=== PATIENT | male | born 1985 | race Caucasian/White ===

== ENCOUNTER 2024-01-21 23:56 | Emergency (ER) | payer OTHER, SELFPAY ==
[2024-01-22] VITALS: BP 154/110
[2024-01-22 00:18] VITALS: BMI 36.6
--- NOTE | 2024-01-22 00:18 | EDRN ---
Pt says he felt his heart fluttering when he was trying to sleep so he took his bp and it was 150/100. Pt says it did not go down so he decided to come in 'to make sure nothing crazy is going on.' Pt says his bp has been going up all week and
thought it might be because of Halloween candy. Pt took melatonin to go to sleep and says it did not help. Every time he starts to fall asleep pt feels fluttering in his chest. Pt has had this sensation in his chest intermittently over the past
10 days. Sensation more frequent today. Pt has not been evaluated for this previously. Pt describes chest tightness rated 2-3/10. Pt has had 'a little' chills and 'a little' cough due to fluttering. No sob, abd pain, n/v, fever, weakness,
dizziness.
[2024-01-22 00:24] VITALS: BP 153/95
[2024-01-22 00:30] VITALS: BP 145/91
--- NOTE | 2024-01-22 00:34 | ED.GENMED ---
History of Present Illness
<Heaven Marie MD, Resident - Last Filed: 01/22/24 03:02>
General
Chief Complaint: Blood Pressure Problem
Source: patient
Exam Limitations: none
Time Seen by Provider: 01/22/24 00:34
Nursing documentation reviewed up to this point in time: agreed with
History of Present Illness
History of Present Illness:
28-year-old male with past medical history significant for ITP, Gilbert's syndrome, hypertension presents to the hospital for evaluation of elevated blood pressure and heart fluttering. About 10 days ago he started having frontal headaches,
throbbing, 7/10 in intensity with no subjective fevers or chills and patient took [id number] ibuprofen with some relief. Over the last 3 to 4 days patient started noticing that his blood pressure is elevated despite taking olmesartan as
prescribed, he started to have some heart fluttering, and some associated chest tightness to it. His chest tightness is about 2/10 in intensity, not radiating to his jaw but radiating into his left arm, his left arm pain could also be from raking
his yard. His symptoms were much worse in the night, he has been using more pillows in the night over the last 2 to 3 days to help his sleep with heart racing. He also states that he has a sensation of taking in deep breath to feel comfortable
every once in a while. Initially his symptoms were intermittent and episodic, however over the last 2 to 3 days his symptoms were becoming gradually worse and his symptoms were continuous today. He denies having shortness of breath, PND,
orthopnea, dizziness, lightheadedness, syncope or near syncopal episodes, swelling of the feet, change in bowel or bladder habits, nausea, emesis, recent illness. He works as a kindergarten schoolteacher, states that kids around him were sick with
viral illnesses but unsure of COVID and flu.
Patient did not receive COVID booster or flu shot.
If applicable-neuro sx onset
Onset of symptoms known: No
Time pt last seen normal is known: No
Past History
<Heaven Marie MD, Resident - Last Filed: 01/22/24 03:02>
Past History
ED Past Medical History: Other (Hypertension, IBS, ITP)
ED Past Surgical History: None
Social History
Tobacco: Non-smoker
Alcohol: Occasional
Personal:
Living: with family
Employment: Employed
Family History
Family History: Other
Review of Systems
<Heaven Marie MD, Resident - Last Filed: 01/22/24 03:02>
Review of Systems
Constitutional: Reports no symptoms
EENT: Reports no symptoms
Respiratory: Reports trouble breathing
Cardiac: Reports palpitations and other (Chest pressure.)
ABD/GI: Reports no symptoms
: Reports no symptoms
Musculoskeletal: Reports no symptoms
Skin: Reports no symptoms
Neurological: Reports no symptoms
Endocrine: Reports no symptoms
Hematologic/Lymphatic: Reports no symptoms
Psychiatric: Reports no symptoms
Phy Exam
<Heaven Marie MD, Resident - Last Filed: 01/22/24 03:02>
General Physical Exam
General Presentation: well appearing and no apparent distress
General Skin: warm
General Habitus: obese
General Mental: alert
General Hydration: appears well hydrated
Eye Exam
Eye Exam: PERRL and EOMI
Cardiovascular Exam
Cardiovascular Exam: regular rate/rhythm, no edema, no gallop, no murmur and normal peripheral pulses
Heart Sounds: normal
Pulmonary Exam
Pulmonary Exam: lungs clear, no respiratory distress, no rales, no crackles and no rhonchi
Gastrointestinal Exam
Gastrointestinal Exam: normal bowel sounds, non tender, soft, no pulsatile mass, non distended and no cva tenderness
Neurological Exam
Neurological Exam: alert, no motor deficits and normal reflexs
Musculoskeletal Exam
Musculoskeletal Exam: no edema
Skin Exam
Skin Exam: normal color
Course
<Hevaen Marie MD, Resident - Last Filed: 01/22/24 03:02>
Orders/Labs/Results
Orders:
Orders
01/22/24 00:07
Electrocardiogram (*1) Urgent
Reason for Study: Other
Other Reason for Exam: Respiratory Distress
Cardiac Monitoring- Treatment ONCE
EKG- Treatment ONCE
CR Chest - 2 Views Urgent
Comment:
Reason For Exam: respiratory distress
O2 Therapy [RESP] Urgent
Titrate/Wean O2 to maintain O2 sat greater than (%): 93
Special Instructions: TO MAINTAIN CONTINUOUS O2 SATS >/= 93%
Pulse Ox/cont/shift [RESP] Urgent
Quantity: 1
Special Instructions: continuous pulse ox
01/22/24 01:26
Complete Blood Count/With Diff Urgent
Comprehensive Metabolic Panel Urgent
Troponin I Urgent
Abnormal Lab Results
01/22/24
01:26
RBC 4.69 L 10^6/uL
(4.70-6.10)
MCH 31.8 H pg
(27.0-31.0)
MCHC 37.4 H g/dL
(33.0-37.0)
Glucose 120 H mg/dl
(70-99)
01/22/24 01:26
01/22/24 01:26
Vital Signs
Initial and Last Documented VS:
Initial Vital Signs
Temp Pulse Resp BP Pulse Ox
98.3 F 54 20 154/110 100
01/22/24 00:00 01/22/24 00:00 01/22/24 00:00 01/22/24 00:00 01/22/24 00:00
Last Documented Vital Signs
Temp Pulse Resp BP Pulse Ox
98.3 F 52 16 130/82 99
01/22/24 00:00 01/22/24 02:29 01/22/24 02:29 01/22/24 02:29 01/22/24 02:29
<Geovany Holly, DO - Last Filed: 01/22/24 02:01>
Orders/Labs/Results
Orders:
Orders
01/22/24 00:07
Electrocardiogram (*1) Urgent
Reason for Study: Other
Other Reason for Exam: Respiratory Distress
Cardiac Monitoring- Treatment ONCE
EKG- Treatment ONCE
CR Chest - 2 Views Urgent
Comment:
Reason For Exam: respiratory distress
O2 Therapy [RESP] Urgent
Titrate/Wean O2 to maintain O2 sat greater than (%): 93
Special Instructions: TO MAINTAIN CONTINUOUS O2 SATS >/= 93%
Pulse Ox/cont/shift [RESP] Urgent
Quantity: 1
Special Instructions: continuous pulse ox
01/22/24 01:26
Complete Blood Count/With Diff Urgent
Comprehensive Metabolic Panel Urgent
Troponin I Urgent
Abnormal Lab Results
01/22/24
01:26
RBC 4.69 L 10^6/uL
(4.70-6.10)
MCH 31.8 H pg
(27.0-31.0)
MCHC 37.4 H g/dL
(33.0-37.0)
Glucose 120 H mg/dl
(70-99)
01/22/24 01:26
01/22/24 01:26
Vital Signs
Initial and Last Documented VS:
Initial Vital Signs
Temp Pulse Resp BP Pulse Ox
98.3 F 54 20 154/110 100
01/22/24 00:00 01/22/24 00:00 01/22/24 00:00 01/22/24 00:00 01/22/24 00:00
Last Documented Vital Signs
Temp Pulse Resp BP Pulse Ox
98.3 F 52 16 130/82 99
01/22/24 00:00 01/22/24 02:29 01/22/24 02:29 01/22/24 02:29 01/22/24 02:29
<Heaven Marie MD, Resident - Last Filed: 01/22/24 03:02>
MDM/Problems Addressed
Differential Diagnosis Includes:
Essential hypertension, SD, tension pneumothorax, acute viral prodrome
MDM/Problems Addressed:
Chest x-ray EKG, troponins-within normal limits
Chronic conditions affecting care: HTN
<Heaven Marie MD, Resident - Last Filed: 01/22/24 03:02>
*Critical Care Note
Total Time (30-74mins, 75-104mins- exclusive of procedures): Not Applicable
<Heaven Marie MD, Resident - Last Filed: 01/22/24 03:02>
Update Note
Update Note:
Chest x-ray, EKG, troponins within normal limits.
CBC and CMP within normal limits.
Updated patient
ED Attending Note
<Heaven Marie MD, Resident - Last Filed: 01/22/24 03:02>
-
Portions of this chart may have been created with voice recognition software.� Occasional wrong word or��sound alike� substitutions may have occurred due to the inherent limitations of voice recognition software.
<Geovany Holly DO - Last Filed: 01/22/24 02:01>
ED Attending Note
Patient seen and examined by attending physician: Yes
I performed a history and physical exam of patient and discussed management with resident, I reviewed resident's note and agree with documented findings and plan of care.: Yes
ED Attending Note:
Seen with resident examined independently agree with assessment and plan medically complex male hypertension ITP Perla Ponce presents with high blood pressure mild headache mild pain in his left arm, here is a nonischemic EKG chest x-ray noted blood
pressure improved without treatment as has his symptoms will check troponin encouraged outpatient follow-up
Discharge Plan
Departure
Patient Disposition: Home (Routine Discharge)
Date of Disposition: 01/22/24
Time of Disposition: 03:00
Patient with high blood pressure during this ER visit?: Yes
Discharge Problem:
Heart palpitations, Benign essential hypertension
Instructions: Palpitations ED, BLOOD PRESSURE, Heart Palpitations
Prescriptions:
No Action
cholecalciferol (vitamin D3) [Vitamin D3] 50 mcg (2,000 unit) Capsule
50 mcg PO DAILY
olmesartan 20 mg Tablet
20 mg PO DAILY
Referrals:
Luz Maria Thomas MD [Family Provider] -
Activity Restrictions/Additional Instructions:
Follow-up with your primary care physician in 1 to 2 weeks.
Interventions
Interventions:
*Risk Screen - Suicide Last Done: 01/22/24 00:00
*General Assessment Last Done: 01/22/24 00:00
*Neglect/Abuse Screening Last Done: 01/22/24 00:00
ED- Fall Risk Assessment Last Done: 01/22/24 00:00
*ED COVID-19 Vaccine History Last Done: 01/22/24 00:00
ED- Cardiac Assessment Last Done: 01/22/24 00:30
ED- Neurological Assessment Last Done: 01/22/24 00:30
ED- Pulmonary Assessment Last Done: 01/22/24 00:30
Discharge Date and Time
Print Language: GERMAN
[2024-01-22 01:00] VITALS: BP 134/83
[2024-01-22 01:40] LABS: % Basophils 0.7 % (0-2); % Eosinophils 1.6 % (0-6); % Immature Granulocytes 0.3 % (0-0.5); % Lymphocytes 22.3 % (20.5-51.1); % Monocytes 8.8 % (1.7-9.3); % Neutrophils 66.3 % (42.2-75.2); Absolute Eosinophils 0.1 10^3/uL (0-0.7); Absolute Lymphocytes 1.4 10^3/uL (1.2-3.4); Absolute Monocytes 0.5 10^3/uL (0.1-0.6); Absolute Neutrophils 4.1 10^3/uL (1.4-6.5); Hematocrit 39.8 % (39.0-52.0); Hemoglobin 14.9 g/dL (13.0-18.0); Mean Corp Hgb Conc. 37.4 g/dL (33.0-37.0); Mean Corpuscular Hgb 31.8 pg (27.0-31.0); Mean Corpuscular Volume 84.9 fL (80.0-94.0); Mean Platelet Volume 10.2 fL (7.4-10.4); Nucleated Red Blood Cells % 0 % (-); Platelet Count 165 10^3/uL (130-400); Red Blood Cell Count 4.69 10^6/uL (4.70-6.10); Red Cell Dist. Width 12.3 % (11.5-14.5); White Blood Cell Count 6.1 10^3/uL (4.8-10.8)
[2024-01-22 02:00] LABS: ALT (SGPT) 30 U/L (0-50); AST (SGOT) 35 U/L (17-59); Albumin 4.2 g/dl (3.5-5.0); Alkaline Phosphatase 78 U/L (38-126); Blood Urea Nitrogen 20 mg/dl (9-20); Calcium 9.3 mg/dl (8.4-10.2); Carbon Dioxide 27 mmol/L (22-30); Chloride 104 mmol/L (98-107); Estimated Creatinine Clearance > 125 ml/min; Glucose 120 mg/dl (70-99); Potassium 4.2 mmol/L (3.5-5.1); Sodium 141 mmol/L (135-145); Total Bilirubin 1.2 mg/dl (0.2-1.3); Total Protein 6.8 g/dl (6.3-8.2); eGFR > 60.00
[2024-01-22 02:12] LABS: Troponin I < 0.012 ng/ml
[2024-01-22 02:29] VITALS: BP 130/82
== END 2024-01-22 03:05 | disposition home or self-care (01) ==
LOC: EMR 23:56
PROVIDERS: Emergency Medicine; EMERGENCY PHYSICIAN Emergency Medicine; FAMILY PHYSICIAN Family Medicine
DX: R00.2 Palpitations (principal); I10 Essential (primary) hypertension; D69.3 Immune thrombocytopenic purpura; E80.4 Gilbert syndrome; K58.9 Irritable bowel syndrome, unspecified
CPT/HCPCS: 99283; 71046; 80053; 84484; 85025; 93005